=== PATIENT | female | born 1975 | race Caucasian/White ===

== ENCOUNTER → 2016-07-13 | Outpatient (CLI) | payer OTHER ==
[~2016-07-13] MED LIST: ALBUTEROL INHAL17 GM IH; ALPRAZOLAM2 MG PO; ATIVAN1 MG PO; CARISOPRODOL 3350 MG PO; CLEOCIN HCL150 MG PO; CYMBALTA60 MG PO; FOLIC ACID; HYDROCODONE-AP1 EA12 PO; HYDROCODONE-AP1 EAC6 PO; NORCO 5-325 TA1 EACH PO; PERCOCET 5-3251 EACH PO; TOPAMAX 100 MG100 MG PO; VITAMIN B-12100 MCG IM; VITAMIN B-625 MG PO; ZOLPIDEM TARTRA10 MG PO; ZPAK PO
== END ==
LOC: RAD 01:19
DX: Z12.31 Encounter for screening mammogram for malignant neoplasm of breast (principal); N63 Unspecified lump in breast

== ENCOUNTER → 2016-07-22 | Outpatient (CLI) | payer OTHER | LOC: RAD 01:05 | DX: R92.0 Mammographic microcalcification found on diagnostic imaging of breast (principal); N63 Unspecified lump in breast ==

== ENCOUNTER 2016-10-12 02:02 | Emergency (ER) | payer OTHER ==
[~2016-10-12] VITALS: Ht 157.5 cm; Wt 54.4 kg
--- NOTE | ~2016-10-12 | EKG ---
[address] [employer] [address] ELECTROCARDIOGRAM REPORT Name: BLADE ROSALES Room #: [facility]#: [id number] Admission: 10/12/16 Attend Phys: Discharge: 10/12/16 Date of : 71 Report #: [id number] THIS REPORT FOR: //name// [facility] ED Test Date: 2016-10-12 Test Time: 02:43:24 Pat Name: BLADE ROSALES Department: Room: Gender: F Branch Examiner: ILT : 1975 Requested By: Rossy Saenz Order Number: [id number] MD: Sumanth Grijalva Measurements Intervals [place] Rate: 80 P: 49 TN: 163 QRS: 72 QRSD: 95 T: 22 QT: 417 QTc: 482 Interpretive Statements Sinus rhythm Borderline T abnormalities, anterior leads Borderline prolonged QT interval Baseline wander in lead(s) V3 Compared to ECG 02/18/2016 14:11:31 T-wave abnormality now present Electronically Signed On 10-12-2016 8:41:50 CDT by Sumanth Grijalva [email or web address] <ELECTRONICALLY SIGNED> By: Sumanth Grijalva MD, [facility] 10/12/16 [phone] Sumanth Grijalva MD, [facility] /EPI
[2016-10-12] MEDS ORDERED: APTIOM400 MG PO (02:16)
[2016-10-12 02:22] LABS: ABSOLUTE NEUTROPHILS 7.8 thou/uL (1.4-8.2); BASOPHILS 0.4 % (0.0-2.0); EOSINOPHILS 0.4 % (0.0-3.0); HEMATOCRIT 43.5 % (37.0-47.0); HEMOGLOBIN 14.7 gm/dL (12.0-15.0); LYMPHOCYTES 27.8 % (24.0-44.0); MCH 31.7 pg (26.0-34.0); MCHC 33.8 g/dL (28.0-37.0); MONOCYTES 4.5 % (1.0-8.0); PLATELET COUNT 246 thou/uL (150-400); POLYS 66.9 % (36.0-66.0); RBC 4.63 mil/uL (4.20-5.00); RDW 13.3 % (10.5-14.5); WBC 11.7 thou/uL (4.0-11.0)
[2016-10-12 02:24] LABS: MANUAL DIFF NO
[2016-10-12 02:29] LABS: CALCIUM 8.7 mg/dL (8.5-10.1); CREATININE 0.8 mg/dL (0.6-1.0); POTASSIUM 3.9 mmol/L (3.5-5.1)
[2016-10-12 02:33] LABS: ALBUMIN 3.2 g/dL (3.4-5.0); TOTAL BILIRUBIN 0.4 mg/dL (<0.1-1.0); TOTAL PROTEIN 6.8 g/dL (6.4-8.2)
== END 2016-10-12 03:29 | disposition home or self-care (01) ==
LOC: ER 02:02
PROVIDERS: Emergency Medicine
DX: R56.9 Unspecified convulsions (principal); F41.9 Anxiety disorder, unspecified; F17.210 Nicotine dependence, cigarettes, uncomplicated; F32.9 Major depressive disorder, single episode, unspecified; Z90.710 Acquired absence of both cervix and uterus; Z88.1 Allergy status to other antibiotic agents

== ENCOUNTER 2017-05-26 19:01 | Inpatient (IN) | payer OTHER ==
[~2017-05-26] VITALS: Ht 157.5 cm; Wt 52.2 kg
[~2017-05-26 19:01] MED LIST changes: +APTIOM400 MG PO
[2017-05-26 19:20] LABS: BASOPHILS 0.5 % (0.0-2.0); EOSINOPHILS 0.2 % (0.0-3.0); HEMATOCRIT 47.5 % (37.0-47.0); HEMOGLOBIN 15.9 gm/dL (12.0-15.0); LYMPHOCYTES 13.1 % (24.0-44.0); MCH 31.1 pg (26.0-34.0); MCHC 33.5 g/dL (28.0-37.0); MCV 92.8 fL (80.0-100.0); MONOCYTES 4.9 % (1.0-8.0); PLATELET COUNT 239 thou/uL (150-400); POLYS 81.3 % (36.0-66.0); RBC 5.11 mil/uL (4.20-5.00); RDW 12.9 % (10.5-14.5); WBC 11.1 thou/uL (4.0-11.0)
[2017-05-26 19:23] LABS: MANUAL DIFF NO
[2017-05-26 19:27] LABS: CALCIUM 9.4 mg/dL (8.5-10.1); CREATININE 1.4 mg/dL (0.6-1.0); POTASSIUM 3.1 mmol/L (3.5-5.1)
[2017-05-26 19:33] LABS: TOTAL BILIRUBIN 0.4 mg/dL (<0.1-1.0); TOTAL PROTEIN 8.1 g/dL (6.4-8.2)
[2017-05-26 20:07] LABS: URINE BILIRUBIN NEGATIVE (Negative); URINE BLOOD 3+ (Negative); URINE COLOR YELLOW; URINE GLUCOSE-RANDOM* NEGATIVE (Negative); URINE KETONES NEGATIVE (Negative); URINE LEUKOCYTES-REFLEX NEGATIVE (Negative); URINE PROTEIN (DIPSTICK) TRACE (Negative); URINE SPECIFIC GRAVITY 1.015 (1.003-1.035); URINE UROBILINOGEN 0.2 E.U./dl (0.2-1.0)
[2017-05-26 20:21] LABS: AMP/METHAMP Negative (Negative); BARBITURATES Negative (Negative); BENZODIAZEPINES POSITIVE (Negative); COCAINE Negative (Negative); METHADONE Negative (Negative); OPIATES POSITIVE (Negative); PCP Negative (Negative); THC POSITIVE (Negative)
[2017-05-26 20:25] LABS: CASTS None Seen /LPF (None Seen); CRYSTALS None Seen /LPF (None Seen); SQUAMOUS 0-3 Few /LPF (0-3); URINE WBC-REFLEX 0-5 Rare /HPF (0-5)
[2017-05-27] VITALS: BP 117/78
[2017-05-27 00:57] VITALS: BP 117/78
[2017-05-27 05:20] VITALS: BP 91/65
[2017-05-27 06:47] LABS: CALCIUM 8.3 mg/dL (8.5-10.1); CREATININE 1.2 mg/dL (0.6-1.0)
[2017-05-27 06:52] LABS: POTASSIUM 4.2 mmol/L (3.5-5.1)
[2017-05-27 08:54] VITALS: BP 91/51
[2017-05-27] MEDS ORDERED: FLOMAX0.4 MG PO (14:23)
[2017-05-27] MEDS ORDERED: NORCO 10-325 T1 EACH PO (14:29)
[2017-05-27 16:07] VITALS: BP 109/62
[2017-05-27 16:23] VITALS: BP 109/62
== END 2017-05-27 17:38 | disposition home or self-care (01) | DRG 694 ==
LOC: ER 19:01 → EROBS 23:13 → 4E 05-27
PROVIDERS: Emergency Medicine; Nurse Practitioner Acute Care
DX: N13.2 Hydronephrosis with renal and ureteral calculous obstruction (principal); N17.9 Acute kidney failure, unspecified; E87.6 Hypokalemia; F17.210 Nicotine dependence, cigarettes, uncomplicated; F32.9 Major depressive disorder, single episode, unspecified; G40.909 Epilepsy, unspecified, not intractable, without status epilepticus; F41.9 Anxiety disorder, unspecified; Z88.8 Allergy status to other drugs, medicaments and biological substances; Z90.710 Acquired absence of both cervix and uterus; Z85.118 Personal history of other malignant neoplasm of bronchus and lung; Z82.49 Family history of ischemic heart disease and other diseases of the circulatory system

== ENCOUNTER → 2017-06-07 | Day surgery (SDC) | payer OTHER ==
[~2017-06-07] VITALS: Ht 157.5 cm; Wt 54.4 kg
[~2017-06-07] MED LIST changes: +FLEXERIL PO; +FLOMAX0.4 MG PO; +NASCOBAL1 EACH NASAL; +NORCO 10-325 T1 EACH PO; +PHENERGAN 25 MG25 M1 PO
--- NOTE | ~2017-06-07 | O ---
[facility] [place] [address] OPERATIVE REPORT Name: BLADE ROSALES Room #: 150-5 [facility]#: [id number] Admission: 06/07/17 Attend Phys: Hernan Haney MD Discharge: Date of : 71 Report #: [id number] THIS REPORT FOR: //name// CC: Lydia Haney DATE OF SERVICE: 06/07/2017 PREOPERATIVE DIAGNOSES: Left ureteral stone. POSTOPERATIVE DIAGNOSIS: Left ureteral stone. PROCEDURE: Cystoscopy, left ureteroscopy with holmium laser ablation of left ureteral stone and placement of left ureteral stent, indwelling. SURGEON: Hernan Haney M.D. ANESTHESIA: General. INDICATIONS: The patient is a 41-year-old woman with persistently symptomatic left ureteral stone. She has been on alpha blockers and I discussed various treatment options, she has opted for endoscopic management. Risks, benefits, complications have been discussed. She understands complications could occur, which I may not be able to foresee or predict. She understands risk of bleeding and sepsis. She understands issues related to stent placement, stent removal. She understands risk of anesthesia including deep venous thrombosis, pulmonary embolism, heart attack, stroke and . SURGICAL PROCEDURE: After obtaining informed consent, she was brought to the operating room. She was positioned in the lithotomy position before any sort of anesthetic was administered, so that we could make certain this was a comfortable position for her because she has a history of a hip disorder or hip disorders. She confirmed that she was adequately positioned and comfortable, then she was anesthetized and prepped and draped. A timeout was performed. Preliminary fluoroscopic images showed an opacification of the left hemipelvis consistent with a known stone. A 22-Zimbabwean Olympus cystoscope was introduced. The bladder was smooth walled. No intrinsic mucosal lesions. Trigone and ureters were normal in configuration and location. I placed a Glidewire alongside the stone up into the left renal pelvis. The ureteral orifice itself was pinpoint. Therefore, I dilated to 15-Zimbabwean at 10 atmospheres using a 4-cm balloon. I then used the 6.9-Zimbabwean semirigid ureteroscope to identify the stone. Alongside the wire, I used a 365 micron holmium laser fiber to bisect the stone. I then retrieved the stone fragments with a 1.9 Zimbabwean 0 tip nitinol basket. All stone fragments had been removed. There was only minimal trauma to the ureter and backloaded the wire through the cystoscope and placed a 6-Zimbabwean x 24 cm contour stent with the proximal curl overlying the kidney and distal [address] [address] OPERATIVE REPORT Name: BLADE ROSALES Room #: 150-5 [facility].#: [id number] Admission: 06/07/17 Attend Phys: Hernan Haney MD Discharge: Date of : 71 Report #: [id number] curl was in the bladder. Bladder was drained. A 10 mL of viscous lidocaine was placed transurethrally. She was then transferred to the recovery room where she arrived in stable condition. The findings were shared with her as was the photograph. <ELECTRONICALLY SIGNED> By: Henran Haney MD 06/08/17 [id number] Hernan Haney MD /nt
[2017-06-07 11:03] VITALS: BP 133/93
[2017-06-07 14:16] VITALS: BP 133/93
== END | disposition home or self-care (01) ==
LOC: TBA 05:21 → OR 05:21
PROVIDERS: Specialist
DX: N20.1 Calculus of ureter (principal); F32.89 Other specified depressive episodes; F41.8 Other specified anxiety disorders; F17.210 Nicotine dependence, cigarettes, uncomplicated; Z90.710 Acquired absence of both cervix and uterus; Z87.442 Personal history of urinary calculi; Z98.890 Other specified postprocedural states; Z79.891 Long term (current) use of opiate analgesic
CPT/HCPCS: 50101; 50164; 51179; 51620; 51767; 62110; 62900

== ENCOUNTER → 2018-01-07 | Outpatient (CLI) | payer OTHER | LOC: ULTRA 01:43 | DX: N60.01 Solitary cyst of right breast (principal); N60.02 Solitary cyst of left breast ==

== ENCOUNTER 2018-03-18 10:33 | Emergency (ER) | payer OTHER ==
[~2018-03-18] VITALS: Ht 157.5 cm; Wt 56.2 kg
== END 2018-03-18 11:57 | disposition home or self-care (01) ==
LOC: ER 10:33
DX: S93.492A Sprain of other ligament of left ankle, initial encounter (principal); S80.02XA Contusion of left knee, initial encounter; F17.210 Nicotine dependence, cigarettes, uncomplicated; Z88.6 Allergy status to analgesic agent; Z90.710 Acquired absence of both cervix and uterus; F41.9 Anxiety disorder, unspecified; F32.9 Major depressive disorder, single episode, unspecified; Z98.890 Other specified postprocedural states; Z87.442 Personal history of urinary calculi; W18.39XA Other fall on same level, initial encounter; Y92.89 Other specified places as the place of occurrence of the external cause; Y93.89 Activity, other specified; Y99.8 Other external cause status

== ENCOUNTER → 2018-06-23 | Outpatient (CLI) | payer OTHER | LOC: ULTRA 09:41 | DX: N60.01 Solitary cyst of right breast (principal); N60.02 Solitary cyst of left breast ==

== ENCOUNTER 2018-06-28 11:16 | Emergency (ER) | payer OTHER ==
[~2018-06-28] VITALS: Ht 157.5 cm; Wt 62.1 kg
[2018-06-28] MEDS ORDERED: LAMICTAL100 MG PO (12:45)
[2018-06-28] MEDS ORDERED: VIMPAT200 MG PO (12:45)
[2018-06-28] MEDS ORDERED: NORCO 5-325 TA1 EACH PO (12:59)
[2018-06-28 15:18] VITALS: BP 110/70
== END 2018-06-28 14:30 | disposition home or self-care (01) ==
LOC: ER 11:16
DX: M79.662 Pain in left lower leg (principal); M79.89 Other specified soft tissue disorders; F17.210 Nicotine dependence, cigarettes, uncomplicated; F41.9 Anxiety disorder, unspecified; F32.9 Major depressive disorder, single episode, unspecified; Z98.890 Other specified postprocedural states; Z87.442 Personal history of urinary calculi; Z88.6 Allergy status to analgesic agent; Z90.710 Acquired absence of both cervix and uterus

== ENCOUNTER → 2019-01-17 | Outpatient (CLI) | payer OTHER ==
[~2019-01-17] MED LIST changes: +LAMICTAL100 MG PO; +VIMPAT200 MG PO
== END ==
LOC: RAD 01:14 → ULTRA 01:14
DX: Z12.31 Encounter for screening mammogram for malignant neoplasm of breast (principal)

== ENCOUNTER → 2019-01-23 | Outpatient (CLI) | payer OTHER | LOC: RAD 01:12 → ULTRA 01:12 → RAD 16:03 | DX: R92.2 Inconclusive mammogram (principal); R92.1 Mammographic calcification found on diagnostic imaging of breast ==

== ENCOUNTER → 2019-02-07 | Outpatient (CLI) | payer OTHER | LOC: ULTRA 09:52 | DX: N60.02 Solitary cyst of left breast (principal); N60.01 Solitary cyst of right breast ==

== ENCOUNTER 2019-07-12 18:36 | Emergency (ER) | payer OTHER ==
[~2019-07-12] VITALS: Ht 157.5 cm; Wt 63.5 kg
[2019-07-12] MEDS ORDERED: CLONAZEPAM 0.50.5 M1 PO (18:43)
[2019-07-12] MEDS ORDERED: VICODIN HP 10-1 EAC1 PO (18:43)
[2019-07-12] MEDS ORDERED: ULTRAM 50MG TAB50 MG PO (20:05)
[2019-07-12 20:14] VITALS: BP 129/71
== END 2019-07-12 20:15 | disposition home or self-care (01) ==
LOC: ER 18:36
DX: S80.12XA Contusion of left lower leg, initial encounter (principal); S80.11XA Contusion of right lower leg, initial encounter; F41.9 Anxiety disorder, unspecified; F32.9 Major depressive disorder, single episode, unspecified; F17.210 Nicotine dependence, cigarettes, uncomplicated; Z90.710 Acquired absence of both cervix and uterus; Z98.890 Other specified postprocedural states; Z87.442 Personal history of urinary calculi; Z88.6 Allergy status to analgesic agent; W10.8XXA Fall (on) (from) other stairs and steps, initial encounter; Y93.89 Activity, other specified; Y92.89 Other specified places as the place of occurrence of the external cause; Y99.8 Other external cause status

== ENCOUNTER 2020-03-03 02:49 | Emergency (ER) | payer OTHER ==
[~2020-03-03] VITALS: Ht 160 cm; Wt 59.0 kg
[~2020-03-03 02:49] MED LIST changes: +CLONAZEPAM 0.50.5 M1 PO; +ULTRAM 50MG TAB50 MG PO; +VICODIN HP 10-1 EAC1 PO
[2020-03-03 05:33] VITALS: BP 106/65
== END 2020-03-03 05:42 | disposition home or self-care (01) ==
LOC: ER 02:49
DX: M25.562 Pain in left knee (principal); Z90.711 Acquired absence of uterus with remaining cervical stump; F32.9 Major depressive disorder, single episode, unspecified; F41.9 Anxiety disorder, unspecified; G40.909 Epilepsy, unspecified, not intractable, without status epilepticus; Z98.890 Other specified postprocedural states; Z87.442 Personal history of urinary calculi; Z79.899 Other long term (current) drug therapy; Z88.6 Allergy status to analgesic agent; F17.210 Nicotine dependence, cigarettes, uncomplicated; W01.0XXA Fall on same level from slipping, tripping and stumbling without subsequent striking against object, initial encounter; Y93.01 Activity, walking, marching and hiking; Y92.414 Local residential or business street as the place of occurrence of the external cause; Y99.8 Other external cause status

== ENCOUNTER 2020-03-21 20:27 | Emergency (ER) | payer OTHER ==
[~2020-03-21] VITALS: Ht 157.5 cm; Wt 59.0 kg
--- NOTE | ~2020-03-21 | EMS ---
[place] [address] EMS Patient Care Report Name: BLADE ROSALES Room #: DEP Edvin#: [id number] Admission: 03/21/20 Attend Phys: Discharge: 03/21/20 Date of : 71 Report #: [id number] THIS REPORT FOR: //name// Report Transmitted: 03/22/2020 08:22 EMS Care Summary [place], [place]/[facility] Incident [id number] @ 03/21/2020 19:56 Incident Location [facility] [address] [place] [address] Patient BLADE ROSALES Female, 44 Years 1975 Patient Address [address] [place] [address] Patient History Epilepsy,Smoking, Patient Allergies Toradol, Patient Medications Unknown, Chief Complaint sore throat, fever, cough Disposition Transported No Lights/[place] Dispatch Reason Breathing Problem Transported To [facility] Narrative Called to the scene for a SOB. Upon arrival, P33 was on the scene. Pt was LOVE x 3 sitting on the back of the pumper c/o SOB. She said this started approx 0700 when she woke up with a sore throat, then it became harder to breathe, [place] [address] EMS Patient Care Report Name: BLADE ROSALES [id number] Admission: 03/21/20 Attend Phys: Discharge: 03/21/20 Date of : 71 Report #: [id number] green and yellow phlegm and a fever starting around 1900 @ 100.3 and sweats. She requests transport to the hospital for further eval & tx. 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 She walked to the ambulance, climbed in and sat down w/o incident. Vitals taken x 2 outside before moving to the ambulance. En route: no changes. RR to ER. Arrived: pt taken to ER #11 and moved to their bed w/o incident. Pt care & report to ER staff. Initial Vitals @20:06P: 93,R: 16,BP: 132/93,Pain: 0/10,GCS: 15,CO: 3,SpO2: 97,Revised Trauma: 12, @20:05P: 91,R: 20,BP: 146/100,Pain: 0/10,GCS: 15,SpO2: 96,Revised Trauma: 12, Assessments @20:03MENTAL:Person Oriented,Time Oriented,Place Oriented,Event Oriented,SKIN:HEENT:Eyes: Left Pupil: 3-mm,Eyes: Right Pupil: 3-mm,Head/Face: No Abnormalities,LUNG SOUNDS:ABDOMEN:PELVIS//GI:EXTREMITIES:Left Arm: No Abnormalities,Right Arm: No Abnormalities,Left Leg: No Abnormalities,Right Leg: No Abnormalities,PULSE:Radial: 2+ Normal,NEURO:No Abnormalities, Impression Acute Respiratory Distress (Dyspnea) Procedures @20:03ALS AssessmentResponse: UnchangedSucceeded Timeline 19:50,Call Received 19:50,Dispatch Notified 19:56,Dispatched 19:56,En Route 20:02,On Scene 20:03,At Patient 20:03,ALS Assessment,Response: UnchangedSucceeded, 20:05,BP: 146/100 M,PULSE: 91,RR: 20 R,SPO2: 96 Ox,ETCO2: ,BG: ,PAIN: 0,GCS: 15, 20:06,BP: 132/93 M,PULSE: 93,RR: 16 R,SPO2: 97 Ox,ETCO2: ,BG: ,PAIN: 0,GCS: 15, 20:09,Depart Scene 20:25,At Destination 20:34,Call Closed Disclaimer v1.1 Copyright 2020 [employer] This EMS Care Summary contains data elements from the applicable legal record (which may be displayed differently). It is designed to provide pertinent information for the following purposes: continuity of care, clinical quality, and state data reporting. The complete legal record is available to ED staff [address] [address] EMS Patient Care Report Name: BLADE ROSALES HARRISONJAGJIT Room #: DEP [facility]#: [id number] Admission: 03/21/20 Attend Phys: Discharge: 03/21/20 Date of : 71 Report #: [id number] and administrators of the receiving hospital in [employer]'s Patient Tracker. All data is provided "as is."
[2020-03-21 21:41] LABS: URINE BILIRUBIN NEGATIVE (Negative); URINE BLOOD 1+ (Negative); URINE CLARITY SL CLOUDY; URINE COLOR YELLOW; URINE GLUCOSE-RANDOM* NEGATIVE (Negative); URINE KETONES NEGATIVE (Negative); URINE LEUKOCYTES-REFLEX NEGATIVE (Negative); URINE NITRITE-REFLEX NEGATIVE (Negative); URINE PROTEIN (DIPSTICK) NEGATIVE (Negative); URINE SPECIFIC GRAVITY 1.025 (1.005-1.035)
[2020-03-21 22:10] LABS: BACTERIA-REFLEX 1-9 Few /HPF (None Seen); CASTS None Seen /LPF (None Seen); CRYSTALS None Seen /LPF (None Seen); MUCUS 4-6 Moderate strn/LPF (None Seen); SQUAMOUS 4-10 Moderate /LPF (0-3); URINE RBC 3-10 Few /HPF (0-2); URINE WBC-REFLEX 0-5 Rare /HPF (0-5)
[2020-03-21] MEDS ORDERED: PROMETH-CODEIN 65 ML PO (23:23)
[2020-03-21] MEDS ORDERED: VIBRAMYCIN 100100 MG PO (23:23)
[2020-03-21 23:54] VITALS: BP 119/68
== END 2020-03-21 23:59 | disposition home or self-care (01) ==
LOC: ER 20:27
PROVIDERS: Emergency Medicine
DX: J40 Bronchitis, not specified as acute or chronic (principal); Z20.828 Contact with and (suspected) exposure to other viral communicable diseases; R05 Cough; R50.9 Fever, unspecified; F17.210 Nicotine dependence, cigarettes, uncomplicated; Z79.899 Other long term (current) drug therapy; Z88.8 Allergy status to other drugs, medicaments and biological substances